=== PATIENT | female | born 1935 | race Caucasian/White ===

== ENCOUNTER 2024-08-09 19:37 | Emergency (ER) | payer MEDICARE, OTHER ==
[2024-08-09] MEDS ORDERED: Sulfamethoxazole/Trimethoprim 800-160 MG Tab PO ONE (19:38)
[2024-08-09 20:49] LABS: BILIRUBIN,URINE NEGATIVE (NEGATIVE); GLUCOSE,URINE NORMAL (NORMAL); KETONES,URINE NEGATIVE (NEGATIVE); LEUKOCYTE ESTERASE,URINE LARGE (NEGATIVE); NITRITE,URINE NEGATIVE (NEGATIVE); OCCULT BLOOD,URINE MODERATE (NEGATIVE); PROTEIN,URINE 30 mg/dL (NEGATIVE); UROBILINOGEN,URINE NORMAL (NEGATIVE)
[2024-08-09 20:50] LABS: APPEARANCE,URINE CLOUDY (CLEAR); COLOR,URINE YELLOW (YELLOW)
[2024-08-09 20:51] LABS: WBC,URINE PACKED (0-5)
[2024-08-10 00:19] VITALS: BP 161/87; PULSE 72
== END 2024-08-09 20:46 | disposition home or self-care (01) ==
LOC: FB.ED 19:37
DX: N39.0 Urinary tract infection, site not specified (principal); E66.9 Obesity, unspecified; K21.9 Gastro-esophageal reflux disease without esophagitis; Z79.899 Other long term (current) drug therapy
CPT/HCPCS: 81001; 87086; 87088; 87186; 99283; A9270-GY